=== PATIENT | female | born 1990 | race Caucasian/White ===

== ENCOUNTER 2017-11-10 16:19 | Observation (INO) | payer MEDICAID ==
[~2017-11-10] VITALS: Ht 165.1 cm; Wt 65.0 kg
[2017-11-10 16:59] LABS: ALBUMIN 4.1 g/dL (3.4-5.0); ANION GAP 6 mmol/L (5-15); CALCIUM 8.2 mg/dL (8.5-10.1); CHLORIDE 106 mmol/L (98-107); CREATININE 0.65 mg/dL (0.55-1.02)
[2017-11-10 17:00] LABS: SALICYLATE LEVEL < 1.7 mg/dL (2.8-20.0)
[2017-11-10 17:03] LABS: ACETAMINOPHEN < 2 mcg/mL (10-30)
[2017-11-10 17:05] LABS: BASOPHILS # (AUTO) 0.06 x10^3/uL (0-0.1); BASOPHILS % (AUTO) 1 % (0-1); EOSINOPHILS # (AUTO) 0.15 x10^3/uL (0-0.4); EOSINOPHILS % (AUTO) 3 % (1-7); LYMPHOCYTES # (AUTO) 2.07 x10^3/uL (1-3.4); LYMPHOCYTES % (AUTO) 35 % (22-44); MD MORPH REVIEW ONLY; MEAN CORPUSCULAR HEMOGLOBIN 19.2 pg (27.0-34.8); MEAN CORPUSCULAR HGB CONC 30.7 g/dL (32.4-35.8); MEAN CORPUSCULAR VOLUME 62.7 fL (80-100); MEAN PLATELET VOLUME 7.8 fL (7.4-10.4); MONOCYTES # (AUTO) 0.63 x10^3/uL (0.2-0.8); MONOCYTES % (AUTO) 11 % (2-9); NEUTROPHILS # (AUTO) 2.93 x10^3/uL (1.8-6.8); NEUTROPHILS % (AUTO) 50 % (42-75); PLATELET COUNT 314 x10^3/uL (130-400); RED BLOOD COUNT 4.91 x10^6/uL (3.82-5.3); RED CELL DISTRIBUTION WIDTH 20.1 % (9.6-15.2)
[2017-11-10 17:06] LABS: <PLATELET ESTIMATE> ADEQUATE; <PLT MORPHOLOGY> NORMAL PLT MORPH; ACANTHOCYTES 1+; ANISOCYTOSIS 2+; HYPOCHROMIA 2+; MICROCYTOSIS 2+; OVALOCYTES 1+
[2017-11-10 18:21] LABS: AMPHETAMINE SCREEN, URINE Negative (Negative); BARBITURATE SCREEN, URINE Negative (Negative); BENZODIAZEPINE SCREEN, URINE Negative (Negative); CANNABINOID SCREEN, URINE Positive (Negative); COCAINE SCREEN, URINE Negative (Negative); METHADONE SCREEN, URINE Negative (Negative); OPIATE SCREEN, URINE Negative (Negative)
[2017-11-10] MEDS ORDERED: LORazepam 1MG TABLET ONE (20:57)
[2017-11-10] MEDS ORDERED: LORazepam 1MG TABLET PO ONE (21:00)
[2017-11-11] MEDS ORDERED: LORazepam 1MG TABLET PO PRN (01:00)
[2017-11-11] MEDS ORDERED: ONDANSETRON ODT 4 MG PO PRN (01:00)
[2017-11-11] MEDS ORDERED: ACETAMINOPHEN 325 MG TABLET PO PRN (01:00)
[2017-11-11] MEDS ORDERED: QUETIAPINE 25MG TABLET PO PRN (01:00)
[2017-11-11] MEDS ORDERED: DOCUSATE 100 MG CAPSULE PO PRN (01:00)
[2017-11-11] MEDS ORDERED: ZIPRASIDONE 20 MG INJ IM PRN (01:00)
[2017-11-11] MEDS ORDERED: DIPHENHYDRAMINE 50 MG CAPSULE PO PRN (01:00)
[2017-11-11 16:17] VITALS: BP 132/84
[2017-11-11] MEDS ORDERED: ERGOCALCIFEROL 50,000 UNIT CAPSULE PO SCH (18:00)
[2017-11-11] MEDS: ASCORBIC ACID 500 MG TABLET PO SCH (19:15)
[2017-11-11] MEDS: FERROUS SULFATE 325 MG TABLET PO SCH (19:15)
[2017-11-11 19:19] VITALS: BP 123/83
[2017-11-11] MEDS: DOCUSATE 100 MG CAPSULE PO SCH (20:34)
[2017-11-11] MEDS: IBUPROFEN 200 MG TABLET PO PRN (20:38)
[2017-11-12] MEDS: METHOCARBAMOL 500 MG TABLET PO PRN ×4 (01:45→20:30)
[2017-11-12 06:11] LABS: MEAN CORPUSCULAR HEMOGLOBIN 19.4 pg (27.0-34.8); MEAN CORPUSCULAR HGB CONC 30.8 g/dL (32.4-35.8); MEAN PLATELET VOLUME 7.7 fL (7.4-10.4); PLATELET COUNT 259 x10^3/uL (130-400); RED BLOOD COUNT 4.62 x10^6/uL (3.82-5.3)
[2017-11-12 06:28] LABS: ANISOCYTOSIS 2+; BASOPHILS # (AUTO) 0.04 x10^3/uL (0-0.1); BASOPHILS % (AUTO) 1 % (0-1); EOSINOPHILS # (AUTO) 0.19 x10^3/uL (0-0.4); EOSINOPHILS % (AUTO) 4 % (1-7); LYMPHOCYTES # (AUTO) 1.94 x10^3/uL (1-3.4); LYMPHOCYTES % (AUTO) 44 % (22-44); MD MORPH REVIEW ONLY; MONOCYTES # (AUTO) 0.52 x10^3/uL (0.2-0.8); MONOCYTES % (AUTO) 12 % (2-9); NEUTROPHILS # (AUTO) 1.76 x10^3/uL (1.8-6.8); NEUTROPHILS % (AUTO) 39 % (42-75)
[2017-11-12 06:29] LABS: <PLATELET ESTIMATE> ADEQUATE; <PLT MORPHOLOGY> NORMAL PLT MORPH; HYPOCHROMIA 2+; MICROCYTOSIS 2+; OVALOCYTES 1+
[2017-11-12 08:28] VITALS: BP 137/88
[2017-11-12] MEDS: FERROUS SULFATE 325 MG TABLET PO SCH ×3 (09:21→16:18)
[2017-11-12] MEDS: DOCUSATE 100 MG CAPSULE PO SCH ×2 (09:21→20:22)
[2017-11-12] MEDS: ASCORBIC ACID 500 MG TABLET PO SCH (09:21)
[2017-11-12 09:31] LABS: OCCULT BLOOD NEGATIVE (NEGATIVE)
[2017-11-12] MEDS ORDERED: HYDR-3240 PO (13:55)
[2017-11-12] MEDS ORDERED: CYCL-259 PO (13:55)
[2017-11-12 19:48] VITALS: BP 129/90
[2017-11-12] MEDS: IBUPROFEN 200 MG TABLET PO PRN (20:30)
== END 2017-11-12 21:10 ==
LOC: ED 18:46 → EDIP 18:51 → ED 19:31 → 2N 11-11 16:08
PROVIDERS: ADMIT Surgery; ATTEND Surgery
DX: R45.851 Suicidal ideations (principal); F20.9 Schizophrenia, unspecified; D50.9 Iron deficiency anemia, unspecified; I10 Essential (primary) hypertension; E55.9 Vitamin D deficiency, unspecified; R44.0 Auditory hallucinations; R44.1 Visual hallucinations
CPT/HCPCS: 36415; 72114; 80048; 80307; 80329; 82040; 82272; 82306; 82330; 82728; 83540; 83550; 84466; 84703; 85025; 99285; G0378; Q0162; G0479; G0480